=== PATIENT | male | born 1960 | race Caucasian/White ===

== ENCOUNTER → 2016-06-04 | Outpatient (CLI) | payer MEDICAID | LOC: OD 11:46 | PROVIDERS: ATTEND Internal Medicine | DX: M54.40 Lumbago with sciatica, unspecified side (principal) | CPT/HCPCS: 72110 ==

== ENCOUNTER 2018-10-09 14:39 | Emergency (ER) | payer MEDICAID ==
[2018-10-09] MEDS ORDERED: NORMAL SALINE 1000 ML 1,000 ML IV ONE ×2 (15:30→20:10)
--- NOTE | 2018-10-09 15:34 | ER Document Report ---
ED Medical Screen (RME) - General Chief Complaint: High Blood Sugar Stated Complaint: BLOOD SUGAR ISSUE Time Seen by Provider: 10/09/18 15:29 Primary Care Provider: VARSHA LAMBERT MD [Primary Care Provider] - Follow up as needed Mode of Arrival: Wheelchair Notes: 58-year-old male presents to ED for elevated blood sugar. He states Saturday night it was 490 and they wanted to bring him in but he went command. He states they told him to drink water and he has been laying in the bed too weak to get up. Patient is alert oriented angry that we did not put him straight into a bed angry that he has to wait to get his blood work and treatment started. He states he was told they will come in here to the hospital he would be put right in the bed. I explained to him that that is never the case. I have greeted and performed a rapid initial assessment of this patient. A comprehensive ED assessment and evaluation of the patient, analysis of test results and completion of medical decision making process will be conducted by an additional ED providers. Dictation of this chart was performed using voice recognition software; therefore, there may be some unintended grammatical errors. TRAVEL OUTSIDE OF THE [place] IN LAST 30 DAYS: No - Related Data Allergies/Adverse Reactions: ondansetron HCl [From Zofran] Allergy (Verified 01/04/16 12:39) Severe Nausea Past Medical History - Social History Chew tobacco use (# tins/day): No Frequency of alcohol use: None Drug Abuse: None - Past Medical History Cardiac Medical History: Reports: Hx Hypercholesterolemia, Hx Hypertension Denies: Hx Coronary Artery Disease, Hx Heart Attack Pulmonary Medical History: Reports: Hx Pneumonia Denies: Hx Asthma, Hx Bronchitis, Hx COPD, Hx Tuberculosis Neurological Medical History: Denies: Hx Cerebrovascular Accident, Hx Seizures Endocrine Medical History: Reports: Hx Diabetes Mellitus Type 2 Renal/ Medical History: Reports: Hx Kidney Stones. Denies: Hx Peritoneal Dialysis GI Medical History: Reports: Hx Gastritis, Hx Gastroesophageal Reflux Disease, Hx Hepatitis - Hep C, Hx Hiatal Hernia Musculoskeltal Medical History: Reports Hx Arthritis Skin Medical History: Reports Hx Cellulitis Infectious Medical History: Reports: Hx Hepatitis - Hep C, Hx MRSA Past Surgical History: Reports: Hx Cholecystectomy, Hx Orthopedic Surgery - R shoulder. Denies: Hx Appendectomy, Hx Bowel Surgery, Hx Cardiac Surgery, Hx Coronary Artery Bypass Graft, Hx Gastric Bypass Surgery, Hx Herniorrhaphy, Hx Open Heart Surgery, Hx Pacemaker, Hx Tonsillectomy - Immunizations Hx Diphtheria, Pertussis, Tetanus Vaccination: Yes - PER PT Physical Exam - Vital signs Vitals: Temp Pulse Resp BP Pulse Ox 97.7 F 92 18 110/67 97 10/09/18 14:41 10/09/18 14:41 10/09/18 14:41 10/09/18 14:41 10/09/18 14:41 Course - Vital Signs Vital signs: Temp Pulse Resp BP Pulse Ox 97.7 F 92 18 110/67 97 10/09/18 14:41 10/09/18 14:41 10/09/18 14:41 10/09/18 14:41 10/09/18 14:41 - Laboratory Laboratory results interpreted by me: 10/09/18 15:18 POC Glucose 429 H* Doctor's Discharge - Discharge Referrals: VARSHA LAMBERT MD [Primary Care Provider] - Follow up as needed
[2018-10-09 16:02] LABS: ABSOLUTE LYMPHOCYTES (AUTO) 1.1 10^3/uL (0.5-4.7); ABSOLUTE MONOCYTES (AUTO) 0.5 10^3/uL (0.1-1.4); ABSOLUTE NEUT (AUTO) 3.9 10^3/uL (1.7-8.2); BASOPHILS % (AUTO) 0.2 % (0-2); HEMATOCRIT 36.8 % (37.9-51.0); HEMOGLOBIN 12.9 g/dL (13.5-17.0); LYMPHOCYTES % (AUTO) 19.3 % (13-45); MEAN CORPUSCULAR HEMOGLOBIN 27.3 pg (27.0-33.4); MEAN CORPUSCULAR HGB CONC 35.1 g/dL (32.0-36.0); MEAN CORPUSCULAR VOLUME 78 fl (80-97); MONOCYTES % (AUTO) 9.7 % (3-13); PLATELET COUNT 156 10^3/uL (150-450); RED BLOOD COUNT 4.73 10^6/uL (4.35-5.55); RED CELL DISTRIBUTION WIDTH 13.8 % (11.5-14.0); SEGMENTED NEUTROPHILS % (AUTO) 70.8 % (42-78); TOTAL CELLS COUNTED % (AUTO) 100 %; WHITE BLOOD COUNT 5.6 10^3/uL (4.0-10.5)
[2018-10-09 16:24] LABS: ALANINE AMINOTRANSFERASE 28 U/L (21-72); ALKALINE PHOSPHATASE 65 U/L (38-126); ANION GAP 16 (5-19); ASPARTATE AMINO TRANSFERASE 31 U/L (17-59); BILIRUBIN,DIRECT 0.4 mg/dL (0.0-0.4); BILIRUBIN,TOTAL 0.8 mg/dL (0.2-1.3); BLOOD UREA NITROGEN 50 mg/dL (7-20); CALCIUM 8.5 mg/dL (8.4-10.2); CARBON DIOXIDE 15 mmol/L (22-30); CHLORIDE 100 mmol/L (98-107); CREATINE KINASE 55 U/L (55-170); POTASSIUM 3.6 mmol/L (3.6-5.0); TOTAL PROTEIN 7.7 g/dL (6.3-8.2)
[2018-10-09 16:37] LABS: GLUCOSE 451 mg/dL (75-110)
[2018-10-09 16:42] LABS: CREATINE KINASE MB 0.64 ng/mL (<4.55)
[2018-10-09 16:44] LABS: TROPONIN I < 0.012 ng/mL
--- NOTE | 2018-10-09 18:41 | ER Document Report ---
ED General - General Chief Complaint: High Blood Sugar Stated Complaint: BLOOD SUGAR ISSUE Time Seen by Provider: 10/09/18 15:29 Primary Care Provider: VARSHA LAMBERT MD [Primary Care Provider] - Follow up as needed Mode of Arrival: Wheelchair Information source: Patient Notes: HPI: Patient is a 58-year-old male who presents today stating since Saturday his sugars have been "high" with vomiting and diarrhea. He states about 4-5 bouts of nonbloody nonbilious vomiting and 4 bouts of nonbloody diarrhea since that time. He states some mild intermittent abdominal discomfort. He denies any dysuria, radiation of the pain, aggravating or relieving factors, or fevers. No history of bowel obstructions in the past. Patient has a past medical history as recorded on methadone secondary to chronic pain. Supposedly EMS was called to the patient's home on Saturday but the patient refused transport with a blood sugar 420. Patient states he takes an unknown oral tablet and does not take insulin. ROS: See HPI All other review of systems reviewed and otherwise negative Reviewed vital signs and nursing note as charted by RN. PHYSICAL EXAM: CONSTITUTIONAL: Alert and oriented and responds appropriately to questions. Well-appearing; well-nourished HEAD: Normocephalic; atraumatic EYES: Sclerae non-icteric ENT: Normal nose; no rhinorrhea; moist mucous membranes NECK: Supple without meningismus; non-tender; no cervical lymphadenopathy, no masses CARD: Regular rate and rhythm; no murmurs; symmetric distal pulses RESP: Normal chest excursion without splinting or tachypnea; breath sounds clear and equal bilaterally; no wheezes, no rhonchi, no rales ABD/GI: Normal bowel sounds; non-distended; soft, mild tenderness of the periumbilical and left lower quadrant with no masses, rebound or guarding, or abdominal bruits; no palpable organomegaly or masses BACK: The back appears normal and is non-tender to palpation EXT: Normal ROM in all joints; non-tender to palpation; no edema SKIN: No acute lesions noted NEURO: CN 2-12 intact; 5/5 bilateral upper and lower extremity strength with sensation intact to light touch PSYCH: The patient's mood and manner are appropriate. Grooming and personal hygiene are appropriate. TRAVEL OUTSIDE OF THE [place] IN LAST 30 DAYS: No - Related Data Allergies/Adverse Reactions: ondansetron HCl [From Zofran] Allergy (Verified 01/04/16 12:39) Severe Nausea Past Medical History - Social History Smoking Status: Never Smoker Chew tobacco use (# tins/day): No Frequency of alcohol use: None Drug Abuse: None Family History: Reviewed & Not Pertinent Patient has suicidal ideation: No Patient has homicidal ideation: No - Past Medical History Cardiac Medical History: Reports: Hx Hypercholesterolemia, Hx Hypertension Denies: Hx Coronary Artery Disease, Hx Heart Attack Pulmonary Medical History: Reports: Hx Pneumonia Denies: Hx Asthma, Hx Bronchitis, Hx COPD, Hx Tuberculosis Neurological Medical History: Denies: Hx Cerebrovascular Accident, Hx Seizures Endocrine Medical History: Reports: Hx Diabetes Mellitus Type 2 Renal/ Medical History: Reports: Hx Kidney Stones. Denies: Hx Peritoneal Dialysis GI Medical History: Reports: Hx Gastritis, Hx Gastroesophageal Reflux Disease, Hx Hepatitis - Hep C, Hx Hiatal Hernia Musculoskeletal Medical History: Reports Hx Arthritis Skin Medical History: Reports Hx Cellulitis Infectious Medical History: Reports: Hx Hepatitis - Hep C, Hx MRSA Past Surgical History: Reports: Hx Cholecystectomy, Hx Orthopedic Surgery - R [facility]. Denies: Hx Appendectomy, Hx Bowel Surgery, Hx Cardiac Surgery, Hx Coronary Artery Bypass Graft, Hx Gastric Bypass Surgery, Hx Herniorrhaphy, Hx Open Heart Surgery, Hx Pacemaker, Hx Tonsillectomy - Immunizations Hx Diphtheria, Pertussis, Tetanus Vaccination: Yes - PER PT Physical Exam - Vital signs Vitals: Temp Pulse Resp BP Pulse Ox 97.7 F 92 18 110/67 97 10/09/18 14:41 10/09/18 14:41 10/09/18 14:41 10/09/18 14:41 10/09/18 14:41 Course - Re-evaluation Re-evalutation: 10/09/18 18:40 Given the above history and physical examination we will provide fluids, nausea medications, CT scan of the abdomen and pelvis, and had a venous blood gas. I would like to assess the possibility of bowel obstruction and/or diabetic ketoacidosis. Nausea medications have been provided. 10/09/18 21:55 Labs as recorded. Patient has drank fluids with no vomiting. He denies any current nausea. Repeat Accu-Chek is less than 300. No evidence of diabetic ketoacidosis. CT scan of the abdomen and pelvis shows no obstruction. Given the above history and physical examination, I had a long discussion with the patient regarding his medications. It appears that the patient is supposed to be taking 1000 mg of metformin twice a day. He states he is only been taking 500 mg. Patient states he does have enough tablets at home. I did call the patient's primary care physician and discussed the case. He is able to see the patient in the clinic. - Vital Signs Vital signs: Temp Pulse Resp BP Pulse Ox 97.7 F 92 18 110/67 97 10/09/18 14:41 10/09/18 14:41 10/09/18 14:41 10/09/18 14:41 10/09/18 14:41 - Laboratory Result Diagrams: 10/09/18 15:48 10/09/18 15:48 Laboratory results interpreted by me: 10/09/18 10/09/18 10/09/18 15:18 15:48 15:48 Hgb 12.9 L Hct 36.8 L MCV 78 L VBG pCO2 VBG HCO3 Sodium 131.0 L Carbon Dioxide 15 L BUN 50 H Glucose 451 H* POC Glucose 429 H* Urine Glucose (UA) Urine Ketones 10/09/18 10/09/18 10/09/18 17:24 18:45 19:27 Hgb Hct MCV VBG pCO2 34.7 L VBG HCO3 17.7 L Sodium Carbon Dioxide BUN Glucose POC Glucose 379 H Urine Glucose (UA) >=500 H Urine Ketones TRACE H 10/09/18 21:34 Hgb Hct MCV VBG pCO2 VBG HCO3 Sodium Carbon Dioxide BUN Glucose POC Glucose 283 H Urine Glucose (UA) Urine Ketones Discharge - Discharge Clinical Impression: Vomiting and diarrhea, Hyperglycemia, Noncompliance w/medication treatment due to intermit use of medication Condition: Good Disposition: HOME, SELF-CARE Additional Instructions: Come back immediately with any return of vomiting or diarrhea, any fevers, any pain, any lightheadedness or dizziness, or any other acute problems. Please make sure that she take two 500 mg tablets twice daily in the morning and at night. Please make sure that you follow up with Dr. Lambert tomorrow am as we have discussed. Referrals: VARSHA LAMBERT MD [Primary Care Provider] - Follow up as needed
[2018-10-09 19:02] LABS: VENOUS BLOOD BASE EXCESS -7.4 mmol/L; VENOUS BLOOD HCO3 17.7 mmol/L (20-32); VENOUS BLOOD PCO2 34.7 mmHg (35-63); VENOUS BLOOD PH 7.33 (7.30-7.42)
--- NOTE | 2018-10-09 19:23 | RADIOLOGY REPORT (SQ) ---
EXAM DESCRIPTION: CT ABD/PELVIS WITH IV ONLY COMPLETED DATE/TIME: 10/09/2018 7:12 pm REASON FOR STUDY: 5; llq pain with vomiting and diarrhea COMPARISON: None. TECHNIQUE: CT scan of the abdomen and pelvis performed using helical scanning technique with dynamic intravenous contrast injection. No oral contrast. Images reviewed with lung, soft tissue, and bone windows. Reconstructed coronal and sagittal MPR images reviewed. Delayed images for evaluation of the urinary system also acquired. All images stored on PACS. All CT scanners at this facility use dose modulation, iterative reconstruction, and/or weight based d osing when appropriate to reduce radiation dose to as low as reasonably achievable (ALARA). [facility]: Dose Right [facility]: CareDose [facility]: Dose Right [facility]: Teradose 4D [facility]: [employer] CONTRAST TYPE AND DOSE: contrast/concentration: Isovue 350.00 mg/ml; Total Contrast Delivered: 99.0 ml; Total Saline Delivered: 65.0 ml RENAL FUNCTION: GFR > 60. RADIATION DOSE: CT Rad equipment meets quality standard of care and radiation dose reduction techniq ues were employed. CTDIvol: 14.1 - 16.9 mGy. DLP: 1606 mGy-cm.. LIMITATIONS: None. FINDINGS: LOWER CHEST: Small hiatal hernia. LIVER: Normal size. No masses. No dilated ducts. SPLEEN: Normal size. No focal lesions. PANCREAS: No masses. No significant calcifications. No adjacent inflammation or peripancreatic fluid collections. Pancreatic duct not dilated. GALLBLADDER: Surgically absent. ADRENAL GLANDS: No significant masses or asymmetry. RIGHT KIDNEY AND URETER: No solid masses. No significant calcifications. No hydronephrosis or hyd roureter. LEFT KIDNEY AND URETER: No solid masses. No significant calcifications. No hydronephrosis or hydr oureter. AORTA AND VESSELS: No aneurysm. No dissection. Renal arteries, SMA, celiac without stenosis. RETROPERITONEUM: No retroperitoneal adenopathy, hemorrhage or masses. BOWEL AND PERITONEAL CAVITY: No masses or inflammatory changes. No free fluid or peritoneal masses. APPENDIX: Normal. PELVIS: No mass. No free fluid. Normal bladder. ABDOMINAL WALL: No masses. No hernias. BONES: No significant or acute findings. OTHER: No other significant finding. IMPRESSION: NO SIGNIFICANT OR ACUTE FINDING IN THE ABDOMEN OR PELVIS ON CT SCAN WITH IV CONTRAST. TECHNICAL DOCUMENTATION: JOB ID: [id number] Quality ID # [id number]: Final reports with documentation of one or more dose reduction techniques (e.g., Au tomated exposure control, adjustment of the mA and/or kV according to patient size, use of iterative reconstruction technique) 2010 [employer]- All Rights Reserved Reading location - IP/workstation name: [email or web address]
[2018-10-09 19:52] LABS: APPEARANCE,URINE CLEAR; BILIRUBIN,URINE NEGATIVE (NEGATIVE); COLOR,URINE YELLOW; GLUCOSE, URINE >=500 mg/dL (NEGATIVE); KETONES,URINE TRACE mg/dL (NEGATIVE); LEUKOCYTE ESTERASE,URINE NEGATIVE (NEGATIVE); NITRITE,URINE NEGATIVE (NEGATIVE); PROTEIN,URINE NEGATIVE (NEGATIVE); URINE SPECIFIC GRAVITY 1.037; UROBILINOGEN,URINE NEGATIVE mg/dL (<2.0)
--- NOTE | 2018-10-09 20:03 | EKG REPORT ---
SEVERITY:- BORDERLINE ECG - SINUS RHYTHM BORDERLINE PROLONGED QT INTERVAL : Confirmed by: Annetta Potter MD 09-Oct-2018 20:02:05
[2018-10-09] MEDS ORDERED: METFORMIN HCL 500 MG TABLET PO ONE (22:00)
[2018-10-09 22:45] VITALS: BP 124/60
== END 2018-10-09 23:03 | disposition home or self-care (01) ==
LOC: ER 14:39
DX: E11.65 Type 2 diabetes mellitus with hyperglycemia (principal); Z91.14 Patient's other noncompliance with medication regimen; R11.10 Vomiting, unspecified; R19.7 Diarrhea, unspecified; R10.815 Periumbilic abdominal tenderness; R10.814 Left lower quadrant abdominal tenderness; G89.29 Other chronic pain; Z79.891 Long term (current) use of opiate analgesic; I10 Essential (primary) hypertension; Z88.8 Allergy status to other drugs, medicaments and biological substances; Z87.19 Personal history of other diseases of the digestive system; Z90.49 Acquired absence of other specified parts of digestive tract
CPT/HCPCS: 93005; 99284; 96360; 96361; 36415; 82553; 82962; 82550; 85025; 80053; 81001; 84484; 82803; 74177; 93010; J3490; J7030

== ENCOUNTER → 2019-05-26 | Outpatient (CLI) | payer MEDICAID, OTHER ==
--- NOTE | 2019-05-26 16:56 | RADIOLOGY REPORT (SQ) ---
EXAM DESCRIPTION: ANKLE LEFT COMPLETE COMPLETED DATE/TIME: 05/26/2019 2:16 pm REASON FOR STUDY: ANKYLOSIS, LEFT ANKLE M24.672 ANKYLOSIS, LEFT ANKLE COMPARISON: None. NUMBER OF VIEWS: Three views. TECHNIQUE: AP, lateral, and oblique radiographic images acquired of the left ankle. LIMITATIONS: None. FINDINGS: MINERALIZATION: Normal. BONES: No acute fracture or dislocation. Large plantar calcaneal spur. No worrisome bone lesions. JOINTS: No effusions. SOFT TISSUES: No soft tissue swelling. No foreign body. OTHER: No other significant finding. IMPRESSION: NEGATIVE STUDY OF THE LEFT ANKLE. NO RADIOGRAPHIC EVIDENCE OF ACUTE INJURY. TECHNICAL DOCUMENTATION: JOB ID: [id number] 2011 [employer]- All Rights Reserved Reading location - IP/workstation name: [email or web address]
== END ==
LOC: OD 14:00
PROVIDERS: ATTEND Internal Medicine
DX: M24.672 Ankylosis, left ankle (principal)

== ENCOUNTER 2019-12-13 22:39 | Emergency (ER) | payer MEDICAID ==
[2019-12-13 23:19] LABS: ABSOLUTE LYMPHOCYTES (AUTO) 1.4 10^3/uL (0.5-4.7); ABSOLUTE MONOCYTES (AUTO) 0.5 10^3/uL (0.1-1.4); BASOPHILS % (AUTO) 0.6 % (0-2); EOSINOPHILS % (AUTO) 0.3 % (0-6); HEMATOCRIT 34.8 % (37.9-51.0); HEMOGLOBIN 12.1 g/dL (13.5-17.0); LYMPHOCYTES % (AUTO) 19.8 % (13-45); MEAN CORPUSCULAR HEMOGLOBIN 27.9 pg (27.0-33.4); MEAN CORPUSCULAR HGB CONC 34.8 g/dL (32.0-36.0); MEAN CORPUSCULAR VOLUME 80 fl (80-97); MONOCYTES % (AUTO) 7.3 % (3-13); PLATELET COUNT 211 10^3/uL (150-450); RED BLOOD COUNT 4.36 10^6/uL (4.35-5.55); RED CELL DISTRIBUTION WIDTH 14.3 % (11.5-14.0); TOTAL CELLS COUNTED % (AUTO) 100 %
--- NOTE | 2019-12-13 23:47 | ER Document Report ---
ED General - General Chief Complaint: Overdose Stated Complaint: OVERDOSE Time Seen by Provider: 12/13/19 23:37 Primary Care Provider: VARSHA LAMBERT MD [Primary Care Provider] - Follow up as needed TRAVEL OUTSIDE OF THE [place] IN LAST 30 DAYS: No - HPI Quality of pain: No pain Context: This is a 59-year-old male who presents to the ED by EMS after reportedly intentionally overdosing on unknown quantities of methadone, Valium, Xanax and Phenergan in an attempt to kill himself. Patient admits to intentionally ingesting these substances. EMS reports administering 48 g charcoal p.o. in route to the emergency department. Patient denies any physical pain at this point. Patient reportedly took these medications at 2000 hrs. patient arrived here in the emergency department around 2230 hrs. Poison control was contacted and recommends cardiac monitoring, checking an EKG to check for QT prolongation, checking CMP and Tylenol levels. Length of observation should be 6 hours at a minimum. Patient does admit to suicidal ideation and states that nothing makes these thoughts some better and nothing other than depression exacerbates them. Associated symptoms: denies: Chest pain, Productive cough, Diarrhea, Drooling, Fever, Nausea, Vomiting, Shortness of breath Exacerbated by: Other - Depression Relieved by: Other - Nothing - Related Data Allergies/Adverse Reactions: ondansetron HCl [From Zofran] Allergy (Verified 01/04/16 12:39) Severe Nausea Past Medical History - General Information source: Patient, Emergency Med Personnel - Social History Smoking Status: Never Smoker Frequency of alcohol use: None Drug Abuse: None Family History: Reviewed & Not Pertinent Patient has suicidal ideation: Yes Patient has homicidal ideation: No - Past Medical History Cardiac Medical History: Reports: Hx Hypercholesterolemia, Hx Hypertension Denies: Hx Coronary Artery Disease, Hx Heart Attack Pulmonary Medical History: Reports: Hx Pneumonia Denies: Hx Asthma, Hx Bronchitis, Hx COPD, Hx Tuberculosis Neurological Medical History: Denies: Hx Cerebrovascular Accident, Hx Seizures Endocrine Medical History: Reports: Hx Diabetes Mellitus Type 2 Renal/ Medical History: Reports: Hx Kidney Stones. Denies: Hx Peritoneal Dialysis GI Medical History: Reports: Hx Gastritis, Hx Gastroesophageal Reflux Disease, Hx Hepatitis - Hep C, Hx Hiatal Hernia Musculoskeletal Medical History: Reports Hx Arthritis Skin Medical History: Reports Hx Cellulitis Infectious Medical History: Reports: Hx Hepatitis - Hep C, Hx MRSA Past Surgical History: Reports: Hx Cholecystectomy, Hx Orthopedic Surgery - R shoulder. Denies: Hx Appendectomy, Hx Bowel Surgery, Hx Cardiac Surgery, Hx Coronary Artery Bypass Graft, Hx Gastric Bypass Surgery, Hx Herniorrhaphy, Hx Open Heart Surgery, Hx Pacemaker, Hx Tonsillectomy - Immunizations Hx Diphtheria, Pertussis, Tetanus Vaccination: Yes - PER PT Review of Systems - Review of Systems Constitutional: No symptoms reported EENT: No symptoms reported Cardiovascular: No symptoms reported Respiratory: No symptoms reported Gastrointestinal: No symptoms reported Genitourinary: No symptoms reported Male Genitourinary: No symptoms reported Musculoskeletal: No symptoms reported Skin: No symptoms reported Hematologic/Lymphatic: No symptoms reported Neurological/Psychological: See HPI -: Yes All other systems reviewed and negative Physical Exam - Vital signs Vitals: Temp 98.2 F 12/13/19 22:39 - Notes Notes: CONSTITUTIONAL [Vital signs reviewed, Patient appears to be in no acute distress, Alert and oriented X 3, patient appears disheveled.] HEAD [Atraumatic, Normocephalic.] EYES [Eyes are normal to inspection, No discharge from eyes, Extraocular muscles intact, Sclera are normal, Conjunctiva are normal.] NECK [Normal ROM, No jugular venous distention, No meningeal signs, no carotid bruit.] RESPIRATORY CHEST [Chest is nontender, Breath sounds normal, No respiratory distress.] CARDIOVASCULAR [RRR, No murmurs, Normal S1 S2, No rub, No gallop.] ABDOMEN [Abdomen is nontender, No pulsatile masses, No other masses, Bowel sounds normal, No distension, No peritoneal signs, No hernias.] BACK [There is no CVA Tenderness, There is no tenderness to palpation, Normal inspection.] UPPER EXTREMITY [Inspection normal, No cyanosis, No clubbing, No edema, 2+ radial pulses.] LOWER EXTREMITY [Inspection normal, No cyanosis, No clubbing, No edema, No calf tenderness, 2+ femoral pulses.] NEURO [No focal motor deficits, No focal sensory deficits, Speech normal.] SKIN [Skin is warm, Skin is dry, Skin is normal color.] LYMPHATIC [No adenopathy in neck.] PSYCHIATRIC [Depressed affect. ] Course - Re-evaluation Re-evalutation: 12/14/19 06:00 Patient is medically cleared. - Vital Signs Vital signs: Temp Pulse Resp BP Pulse Ox 98.5 F 60 18 142/73 H 100 12/14/19 17:01 12/14/19 17:01 12/14/19 17:01 12/14/19 17:01 12/14/19 17:01 - Laboratory Result Diagrams: 12/13/19 23:07 12/13/19 23:07 Laboratory results interpreted by me: 12/13/19 12/13/19 12/14/19 23:07 23:07 02:36 Hgb 12.1 L Hct 34.8 L RDW 14.3 H Potassium 3.3 L Carbon Dioxide 19 L BUN 31 H Glucose 257 H Total Protein 8.6 H Urine Protein 100 H Urine Glucose (UA) 50 H Urine Ketones TRACE H Urine Urobilinogen 4.0 H Salicylates < 1.0 L Acetaminophen < 10 L - EKG Interpretation by Me Additional EKG results interpreted by me: 12/13/19 23:55 EKG obtained on 12/13/2019 at 2245 hrs. was interpreted by this MD. Findings: Normal sinus rhythm, rate 97, normal axis, IL intervals appear to be within normal limits, P waves proceed QRS complexes, QRS complexes appear narrow, QTC is 478, there are no obvious patterns of ST segment elevation or depression present to suggest acute myocardial ischemia or infarction. There is no prior EKG readily available for comparison. Impression: Normal sinus rhythm with nonspecific ST segments and a QTC of 478 Discharge - Discharge Clinical Impression: Suicidal ideation, Involuntary commitment Intentional drug overdose Qualifiers: Encounter type: initial encounter Qualified Code(s): T50.902A - Poisoning by unspecified drugs, medicaments and biological substances, intentional self-harm, initial encounter Condition: Stable Disposition: PSYCH HOSP/UNIT Referrals: VARSHA LAMBERT MD [Primary Care Provider] - Follow up as needed
[2019-12-13 23:48] LABS: ACETAMINOPHEN < 10 ug/mL (10-30); ALBUMIN 4.8 g/dL (3.5-5.0); ALCOHOL < 10 mg/dL (NONE DETECTED); ALKALINE PHOSPHATASE 67 U/L (38-126); ANION GAP 15 (5-19); ASPARTATE AMINO TRANSFERASE 20 U/L (17-59); BILIRUBIN,DIRECT 0.3 mg/dL (0.0-0.4); BILIRUBIN,TOTAL 0.8 mg/dL (0.2-1.3); BLOOD UREA NITROGEN 31 mg/dL (7-20); CALCIUM 9.5 mg/dL (8.4-10.2); CARBON DIOXIDE 19 mmol/L (22-30); CHLORIDE 104 mmol/L (98-107); GLUCOSE 257 mg/dL (75-110); POTASSIUM 3.3 mmol/L (3.6-5.0); SALICYLATE < 1.0 mg/dL (2.0-20.0); TOTAL PROTEIN 8.6 g/dL (6.3-8.2)
--- NOTE | 2019-12-14 02:24 | EKG REPORT ---
SEVERITY:- BORDERLINE ECG - SINUS RHYTHM BORDERLINE PROLONGED QT INTERVAL : Confirmed by: Jim Cline MD 14-Dec-2019 02:23:33
[2019-12-14 03:34] LABS: APPEARANCE,URINE CLEAR; BILIRUBIN,URINE NEGATIVE (NEGATIVE); GLUCOSE, URINE 50 mg/dL (NEGATIVE); KETONES,URINE TRACE mg/dL (NEGATIVE); LEUKOCYTE ESTERASE,URINE NEGATIVE (NEGATIVE); NITRITE,URINE NEGATIVE (NEGATIVE); PROTEIN,URINE 100 mg/dL (NEGATIVE); URINE SPECIFIC GRAVITY 1.028
[2019-12-14 03:35] LABS: COLOR,URINE YELLOW
[2019-12-14 03:47] LABS: URINE AMPHETAMINES SCREEN NEGATIVE; URINE BARBITURATES SCREEN NEGATIVE; URINE COCAINE SCREEN NEGATIVE; URINE MARIJUANA (THC) SCREEN NEGATIVE; URINE METHADONE SCREEN NEGATIVE; URINE PHENCYCLIDINE SCREEN NEGATIVE
[2019-12-14 04:05] LABS: URINE BENZODIAZEPINES SCREEN UNCONFIRMED POSITIVE
--- NOTE | 2019-12-14 13:26 | PSYCHOLOGICAL NOTE ---
Psych Note - Psych Note Date seen by psych provider: 12/14/19 Time seen by psych provider: 10:38 Psych Note: Reason for Consult: Intentional overdose This is a 59-year-old male who presents to the ED by EMS after reportedly intentionally overdosing on unknown quantities of methadone, Valium, Xanax and Phenergan in an attempt to kill himself. Patient states he was trying to kill himself. He reports he has been thinking about "all the people that want to go to [facility] but no one want to ." He is unable to articulate his trigger. He disclosed he started "eating" the medications on Saturday. He confirms he has been inpatient psychiatric treatment previously at [facility]. He reports he needs his medication for pain and is concerned he has not received them yet. He reports he picks his medication up from [facility]; however, refuses to provided his prescriber's name. 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 Clinician explained the concerns in regarding these medications i.e. patient just overdosed on these medications. Patient states that many of his medications he cannot just stop off of. Clinician confirms patient reconciliation is occurring and medication recommendations will be provided. Patient then requests something to drink. Clinician notes after exiting patient's room, patient is heard arguing with what is later identified as the names of his brothers. Patient can be heard and is observed engaging with both his auditory and visual hallucinations. Patient is prescribed per [facility]: Cogentin 1mg QHS last filled 12/08/2019 (84 pills) Doxipin 150mg QHS last filled 12/08/2019 (84 pills) Omeprazole 40mg daily last filled 11/18/2019 (90 pills) Promethazine 25mg twice daily as needed last filled 11/17/2019 (60 pills) Diazepam 5mg daily as needed last filled 11/17/2019 (30 pills) Methadone 10mg twice daily as needed last filled 11/17/2019 (60 pills) Clonidine 0.2mg at bedtime last filled 11/09/2019 ( 28 pills, patient should be out) Abilify 15mg daily last filled 11/09/2019 (28 pills, patient should be out) Patient is alert and orientated to person, place, time and circumstance. Mood is overall euthymic with congruent affect however patient does become slightly irritable when discussing eating his medications. Patient confirms intentional overdose with continued suicidal ideation. Patient denies homicidal ideation. Delusions are absent however patient is demonstrating behaviors of responding to internal stimuli; both auditory and visual hallucinations. Patient can be observed arguing with his brothers however patient is alone in his room. Patient also disclosed to [facility] staff of seeing his brothers in his room. Eye contact is well maintained. Conversational speech is within normal rate, tone and prosody. Intellectual abilities appear to be within the average range. Attention and concentration is fair. Insight, judgment, impulse control is poor. Clinical presentation: Intentional overdose Auditory/visual hallucinations Paperwork faxed for placement consideration: [facility]- requested 24 wait due to overdose Dip[facility]- accepted at [address]illiam. Transport request faxed at [phone] Impression\\plan: Patient is recommended for full IVC. Patient admits to intentional overdose on his medications with intent to kill himself. There is concern the patient suffers from substance abuse and has multiple prescriptions for highly addictive medications, and is agitated due to not receiving these medications. It is noted that some of these addictive medications i.e. Valium, methadone and Xanax are reportedly what the patient overdosed on. Clinician notes patient does not have an active prescription for Xanax and is currently demonstrating probable negative for methadone. Patient continues to disclose thoughts of wanting to harm himself and is observed with behaviors indicating he is responding to internal stimuli i.e. visual and auditory hallucinations. Dr. Jordan was consulted to care management of this patient; attending physicians in agreement with recommendations and disposition.
--- NOTE | 2019-12-14 16:06 | ER Document Report ---
Doctor's Note Notes: 12/14/19 16:04 Patient's vital signs and previous labs, diagnostic imaging reviewed. Reviewed mental health notes, nurses notes and previous vital signs. Patient is in no distress at this time denies any SI or HI. General: Hallucinating Lungs: no respiratory distress Psych: appears to be hallucinating at this time A&P: Pending mental health placement. Is medically cleared. 12/14/19 16:04 12/14/19 19:16 Was notifed patient has placement at [facility]. [facility] paperwork completed for patient.
[2019-12-14 17:02] VITALS: BP 142/73
== END 2019-12-14 17:44 ==
LOC: ER 22:39
DX: T40.3X2A Poisoning by methadone, intentional self-harm, initial encounter (principal); T50.902A Poisoning by unspecified drugs, medicaments and biological substances, intentional self-harm, initial encounter; Z88.8 Allergy status to other drugs, medicaments and biological substances; I10 Essential (primary) hypertension; E11.9 Type 2 diabetes mellitus without complications
CPT/HCPCS: 36415; 80053; 80307; 81001; 85025; 93005; 93010; 99285

== ENCOUNTER → 2020-01-08 | Outpatient (CLI) | payer MEDICAID ==
--- NOTE | 2020-01-09 10:03 | RADIOLOGY REPORT (SQ) ---
EXAM DESCRIPTION: ELBOW LEFT OVER 2 VIEWS IMAGES COMPLETED DATE/TIME: 01/08/2020 5:43 pm REASON FOR STUDY: (M24.622)ANKYLOSIS, LEFT ELBOW M24.622 ANKYLOSIS, LEFT ELBOW COMPARISON: None. NUMBER OF VIEWS: Four views. TECHNIQUE: AP, lateral, and both oblique radiographic images acquired of the left elbow. LIMITATIONS: None. FINDINGS: MINERALIZATION: Normal. BONES: Distracted fracture of the olecranon. Displaced posteriorly and superiorly. JOINT: Large joint effusion. SOFT TISSUES: Soft tissue swelling. OTHER: No other significant finding. IMPRESSION: Distracted olecranon fracture. Joint effusion soft tissue swelling. COMMENT: Preliminary findings reported to the referring physician at the time of the study TECHNICAL DOCUMENTATION: JOB ID: [id number] 2010 [employer]- All Rights Reserved Reading location - IP/workstation name: [email or web address]
== END ==
LOC: RAD 17:27
PROVIDERS: ATTEND Internal Medicine
DX: M24.622 Ankylosis, left elbow (principal); S52.022A Displaced fracture of olecranon process without intraarticular extension of left ulna, initial encounter for closed fracture; X58.XXXA Exposure to other specified factors, initial encounter